=== PATIENT | female | born 1955 | race Caucasian/White ===

== ENCOUNTER 2023-03-24 09:39 | Emergency (ER) | payer MEDICARE, BC ==
[~2023-03-24] VITALS: Ht 172.7 cm; Wt 75.9 kg
[2023-03-24 10:32] LABS: CLARITY,URINE CLOUDY (Clear); COLOR,URINE YELLOW (Yellow); GLUCOSE, URINE NEGATIVE (Neg); KETONES,URINE TRACE mg/dl (Neg); LEUKOCYTE ESTERASE ,URINE MODERATE (Neg); NITRITES, URINE POSITIVE (Neg); OCCULT BLOOD,URINE SMALL (Neg); PROTEIN,URINE 100 mg/dl (Neg)
[2023-03-24 10:57] LABS: UA COLLECTION TYPE VOIDED
[2023-03-24] MEDS ORDERED: cephalexin 250mg capsule PO ONE (11:00)
[2023-03-24] MEDS ORDERED: CEPH-585 PO (11:01)
[2023-03-24 11:15] VITALS: BP 133/58
[2023-03-24 11:16] LABS: BACTERIA,URINE 3+ /HPF (Neg); SQUAMOUS EPITHELIAL CELL,UR MODERATE /LPF (FEW)
[2023-03-24 11:17] LABS: RBC,URINE 0-2 /HPF (0-2); WBC,URINE 30-50 /HPF (0-4)
[2023-03-26] MEDS ORDERED: diphenhydrAMINE 50 mg/ml inj IV PRN (02:15)
[2023-03-26] MEDS ORDERED: HYDROcodone/acetaminophen 10/325mg tab PO PRN (02:15)
[2023-03-26] MEDS ORDERED: magnesium hydroxide 30ml (MOM) UD suspension PO PRN (02:15)
[2023-03-26] MEDS ORDERED: mag hydrox/Alum hydrox/simeth 30ml oral suspension PO PRN (02:15)
[2023-03-26] MEDS ORDERED: diphenhydrAMINE 25mg capsule PO PRN (02:15)
[2023-03-26] MEDS ORDERED: ondansetron/PF 4mg/2ml inj IV PRN (02:15)
[2023-03-26] MEDS ORDERED: bisacodyl 10mg suppository rectal RC PRN (02:15)
[2023-03-26] MEDS ORDERED: morphine 2 MG/ML inj. syringe IV PRN ×2 (02:15)
[2023-03-26] MEDS ORDERED: ondansetron 4mg rapidly disintigrating tab PO PRN (02:15)
[2023-03-26] MEDS ORDERED: dextrose 5%-1/2 normal saline 1,000 ML IV SCH (02:15)
[2023-03-26] MEDS ORDERED: HYDROcodone/acetaminophen 5mg/325mg tablet PO PRN (02:15)
[2023-03-26] MEDS ORDERED: acetaminophen 650mg rectal suppository RC PRN (02:15)
[2023-03-26] MEDS ORDERED: acetaminophen 325mg tablet PO PRN ×2 (02:15)
[2023-03-26] MEDS ORDERED: vancomycin/NS 1 GM ADD-VANTAGE 250 ML IV ONE (02:32)
[2023-03-26] MEDS ORDERED: piperacillin/tazo 3.375gm/50ml 50 ML IV SCH (04:00)
[2023-03-26] MEDS ORDERED: heparin, porcine 5000 units/ml vial SQ SCH (08:00)
[2023-03-26] MEDS ORDERED: docusate sod 100mg capsule PO SCH (08:00)
[2023-03-26] MEDS ORDERED: NO HOME MEDS (14:03)
[2023-03-26] MEDS ORDERED: temazepam 15mg capsule PO PRN (21:00)
[2023-03-29] MEDS ORDERED: LEVO-65 PO (09:40)
== END 2023-03-24 11:17 | disposition home or self-care (01) ==
LOC: ER 09:39
DX: N39.0 Urinary tract infection, site not specified (principal); M19.90 Unspecified osteoarthritis, unspecified site
CPT/HCPCS: 81001; 87077; 87088; 87186; 93005; 99284